=== PATIENT | male | born 1985 | race African-American/Black ===

== ENCOUNTER 2021-06-22 12:28 | Emergency (ER) | payer MEDICAID ==
[~2021-06-22] VITALS: Ht 172.7 cm; Wt 74.0 kg
[2021-06-22] MEDS ORDERED: IBUPROFEN 800MG TABLET PO ONE (12:45)
[2021-06-22 14:03] VITALS: BP 145/69
== END 2021-06-22 14:04 | disposition home or self-care (01) ==
LOC: ER 12:42
DX: S43.492A Other sprain of left shoulder joint, initial encounter (principal); V00.131A Fall from skateboard, initial encounter; Y93.89 Activity, other specified; Y92.89 Other specified places as the place of occurrence of the external cause; Y99.8 Other external cause status
CPT/HCPCS: 73030; 99283; A4565